=== PATIENT | female | born 2000 | race African-American/Black ===

== ENCOUNTER 2020-06-21 14:50 | Emergency (ER) | payer OTHER ==
[~2020-06-21] VITALS: Ht 152.4 cm; Wt 46.7 kg
[2020-06-21] MEDS ORDERED: PROAIR HFA8.5 GM INH (16:01)
[2020-06-21] MEDS ORDERED: PREDNISOLONE SO10 MG PO (16:01)
[2020-06-21 16:15] VITALS: BP 130/86
== END 2020-06-21 16:27 | disposition home or self-care (01) ==
LOC: ER 14:50
DX: J45.901 Unspecified asthma with (acute) exacerbation (principal); R19.7 Diarrhea, unspecified; Z20.822 Contact with and (suspected) exposure to COVID-19